=== PATIENT | male | born 1965 | race Caucasian/White ===

== ENCOUNTER 2022-08-04 07:17 | Day surgery (SDC) | payer OTHER ==
[~2022-08-04] VITALS: Ht 170.2 cm; Wt 96.2 kg
[~2022-08-04 07:17] MED LIST: B121000 MC1 PO; MAGNESIUM500 M1 PO; VITAMIN C1000 MG PO; ZINC50 MG PO
[2022-08-04 09:10] VITALS: BP 142/94
== END 2022-08-04 09:09 | disposition home or self-care (01) | DRG 395 ==
LOC: ENDO 07:17 → ORM 08:30 → ENDO 09:09
PROVIDERS: ATTEND Surgery
PROC: 0DJD8ZZ Inspection of Lower Intestinal Tract, Via Natural or Artificial Opening Endoscopic (ICD-10-PCS; principal; 2022-08-04)
DX: K64.8 Other hemorrhoids (principal); Z80.0 Family history of malignant neoplasm of digestive organs